=== PATIENT | female | born 1990 | race African-American/Black ===

== ENCOUNTER 2022-06-15 05:42 | Emergency (ER) | payer BC ==
[2022-06-15] MEDS ORDERED: Ondansetron ODT 4 MG TAB ONE (07:05)
== END 2022-06-15 08:02 | disposition home or self-care (01) ==
LOC: CSHERS 05:42
DX: O21.8 Other vomiting complicating pregnancy (principal); O99.281 Endocrine, nutritional and metabolic diseases complicating pregnancy, first trimester; E86.0 Dehydration; Z3A.01 Less than 8 weeks gestation of pregnancy
CPT/HCPCS: 96360; Q0162